=== PATIENT | female | born 1985 | race Caucasian/White ===

== ENCOUNTER 2021-06-20 11:45 | Emergency (ER) | payer OTHER, SELFPAY | END 2021-06-20 13:10 | disposition home or self-care (01) | LOC: BURERS 11:45 | DX: S92.501A Displaced unspecified fracture of right lesser toe(s), initial encounter for closed fracture (principal); F17.210 Nicotine dependence, cigarettes, uncomplicated; V89.2XXA Person injured in unspecified motor-vehicle accident, traffic, initial encounter ==